=== PATIENT | male | born 2000 | race Caucasian/White ===

== ENCOUNTER 2024-08-15 04:26 | Emergency (ER) | payer BC, OTHER ==
[2024-08-15 04:58] VITALS: BP 138/82; PULSE 92; RESP 18; TEMP 98.2; BMI 20.1
[2024-08-15] MEDS ORDERED: LIDOCAINE 4% PATCH TP ONE (04:59)
[2024-08-15] MEDS ORDERED: ACETAMINOPHEN 325 MG TABLET (FP) ONE (04:59)
[2024-08-15] MEDS: ACETAMINOPHEN 500 MG TABLET (FP) PO ONE (05:04)
[2024-08-15] MEDS: LIDOCAINE 4% PATCH TP ONE (05:04)
[2024-08-15] MEDS ORDERED: LIDOCAINE PATCH REMOVAL MC ONE (17:00)
== END 2024-08-15 05:55 | disposition home or self-care (01) ==
LOC: JER 04:26
DX: M25.511 Pain in right shoulder (principal); V89.2XXA Person injured in unspecified motor-vehicle accident, traffic, initial encounter; Y92.410 Unspecified street and highway as the place of occurrence of the external cause
CPT/HCPCS: 73030-TC-RT-FY; 99283-25